=== PATIENT | male | born 1955 | race Caucasian/White ===

== ENCOUNTER 2018-08-22 19:42 | Emergency (ER) | payer MEDICARE ==
[~2018-08-22] VITALS: Ht 177.8 cm; Wt 69.4 kg
[2018-08-22] MEDS ORDERED: DULO30 (20:46)
[2018-08-22] MEDS ORDERED: TRAM50 PO (20:46)
[2018-08-22] MEDS ORDERED: Omeprazole20 M1 (20:46)
[2018-08-22] MEDS ORDERED: CYCL10 PO (20:46)
[2018-08-22] MEDS ORDERED: Norco 5-325 Ta1 EACH PO (21:54)
[2018-08-22] MEDS ORDERED: Baclofen10 MG PO (21:54)
== END 2018-08-22 22:01 | disposition home or self-care (01) ==
LOC: ER 19:42
DX: M54.5 Low back pain (principal); G89.29 Other chronic pain; K21.9 Gastro-esophageal reflux disease without esophagitis; Z79.899 Other long term (current) drug therapy; F17.200 Nicotine dependence, unspecified, uncomplicated
CPT/HCPCS: 96372; 99283-25; J1885